=== PATIENT | male | born 1970 | race Caucasian/White ===

== ENCOUNTER 2021-02-13 18:15 | Emergency (ER) | payer MEDICAID, OTHER ==
[~2021-02-13] VITALS: Ht 167.6 cm; Wt 90.7 kg
[2021-02-13 18:17] VITALS: BP 121/76
[2021-02-13] MEDS ORDERED: HYDROcodone-ACET 5/325MG TAB PO ONE ×2 (20:45→22:00)
== END 2021-02-14 00:32 | disposition home or self-care (01) ==
LOC: ER 18:17
DX: S01.511A Laceration without foreign body of lip, initial encounter (principal); R68.84 Jaw pain; M25.512 Pain in left shoulder; I10 Essential (primary) hypertension; F17.210 Nicotine dependence, cigarettes, uncomplicated; Z91.018 Allergy to other foods; Y08.89XA Assault by other specified means, initial encounter; Y93.89 Activity, other specified; Y92.89 Other specified places as the place of occurrence of the external cause; Y99.8 Other external cause status
CPT/HCPCS: 70486; 71046; 72125; 73030